=== PATIENT | female | born 1985 | race Two or more races ===

== ENCOUNTER 2022-01-17 11:18 | Outpatient (CLI) | payer OTHER | END 2022-01-17 11:41 | disposition home or self-care (01) | LOC: RAD 11:18 | PROVIDERS: ATTEND Colon & Rectal Surgery | DX: K59.09 Other constipation (principal) ==

== ENCOUNTER 2022-04-27 14:15 | Inpatient (IN) | payer OTHER ==
[~2022-04-27] VITALS: Ht 165.1 cm; Wt 63.5 kg
[2022-05-03] MEDS ORDERED: MONTELUKAST SOD10 MG (08:43)
[2022-05-05] MEDS ORDERED: ORPHENADRINE C100 MG PO (12:57)
== END 2022-05-05 16:14 | disposition home or self-care (01) | DRG 331 ==
LOC: O/R 05-03 05:22 → SURH 05-03 09:30
PROVIDERS: ADMIT Colon & Rectal Surgery; ATTEND Colon & Rectal Surgery
PROC: 0DBP4ZZ Excision of Rectum, Percutaneous Endoscopic Approach (ICD-10-PCS; 2022-05-03)
PROC: 0DJD8ZZ Inspection of Lower Intestinal Tract, Via Natural or Artificial Opening Endoscopic (ICD-10-PCS; 2022-05-03)
PROC: 0DTN4ZZ Resection of Sigmoid Colon, Percutaneous Endoscopic Approach (ICD-10-PCS; principal; 2022-05-03 15:00)
DX: K59.02 Outlet dysfunction constipation (principal); Z20.822 Contact with and (suspected) exposure to COVID-19